=== PATIENT | female | born 1985 | race Caucasian/White ===

== ENCOUNTER 2017-06-15 11:09 | Emergency (ER) | payer BC, OTHER ==
[~2017-06-15] VITALS: Ht 157.5 cm; Wt 87.3 kg
[~2017-06-15 11:09] MED LIST: FRRS300 PO; PRENTAB26 PO
[2017-06-15 11:14] VITALS: TEMP 36.9; Ht 157.5 cm; Wt 87.3 kg
[2017-06-15] MEDS ORDERED: CHOL100010 PO (11:34)
[2017-06-15] MEDS ORDERED: AMOX500T PO (11:34)
[2017-06-15] MEDS ORDERED: SERT25TA PO (11:34)
[2017-06-15] MEDS ORDERED: LISI-729 PO (11:34)
[2017-06-15] MEDS ORDERED: ACETAMINOPHEN 500 MG TAB PO STA (12:21)
[2017-06-15] MEDS ORDERED: KETOROLAC TROMETHAMINE 60 MG/2 ML VIAL IM STA (12:21)
[2017-06-15] MEDS ORDERED: COUGH DROP (SUGAR FREE) LOZ 24 LOZ/1 BOX PO STA (12:21)
[2017-06-15] MEDS ORDERED: DEXAMETHASONE **PF** INJ 10 MG/ML VIAL PO STA (12:21)
--- NOTE | 2017-06-15 12:27 | EMERGENCY ROOM VISIT NOTE ---
History Report prepared by Bianca: Dasia Kwan Under the Supervision of: Dr. Michael Ray M.D. First contact with patient: 11:42 Chief Complaint: SORETHROAT Stated Complaint: SORE THROAT, EAR ACHE, COUGHING, CONGESTED History of Present Illness The patient is a 31 year old white female with a past medical history of HTN, bronchitis, and anxiety who presents to the ED with persistent sore throat for three days DAMASCENER. Positive sore throat, congestion, productive cough with yellow mucus, nausea, vomiting, rhinorrhea, chills, and diaphoresis. Negative abdominal pain. She currently rates her discomfort a 6/10 in severity. She regularly takes Zoloft, Lisinopril, and Vitamin D. She denies any history of smoking. She notes that she had bronchitis three months ago. She notes that she went to see her PCP, was prescribed Augmentin for a left ear infection. She notes that she was tested for strep with a negative result. She notes that she has taken OTC medication, though no relief. She notes that she has not received the flu shot this year. Source of History: patient Onset: three days DAMASCENER Position: throat Symptom Intensity: 6/10 Quality: other (sore) Timing: other (persistent ) Associated Symptoms: + chills, + diaphoresis, + sorethroat, + cough ( productive cough with yellow mucu), + nausea, + vomiting, No abdominal pain Note: She notes congestion and rhinorrhea. Review of Systems See HPI for pertinent positives and negatives. A total of ten systems were reviewed and were otherwise negative. Past Medical & Surgical Medical Problems: (1) Bronchitis Surgical Problems: (1) H/O section (2) H/O hernia repair Family History Cancer Heart disease Hypertension Kidney disease Kidney stones Social History Smoking Status: Never Smoker Smokeless Tobacco Use: No Alcohol Use: none Drug Use: none Marital Status: single Housing Status: lives with family Occupation Status: employed Current/Historical Medications Scheduled Amoxicillin & Pot Clavulanate (Augmentin 500MG), Unknown Dose PO BID Azithromycin (Zithromax), 250 MG PO DAILY Cholecalciferol (Vitamin D), 1,000 UNITS PO DAILY Lisinopril (Zestril), Unknown Dose PO DAILY Prednisone (Prednisone), 50 MG PO DAILY Sertraline (Zoloft), Unknown Dose PO DAILY Allergies Coded Allergies: Cefaclor (Verified Allergy, Unknown, HIVES, 06/15/17) Cephalosporins (Verified Allergy, Unknown, HIVES, 06/15/17) Physical Exam Vital Signs Date Time Temp Pulse Resp B/P (MAP) Pulse Ox O2 Delivery O2 Flow Rate FiO2 06/15/17 14:05 81 20 131/94 99 06/15/17 12:42 65 18 151/111 100 Room Air 06/15/17 11:14 36.9 85 20 196/110 98 Room Air Physical Exam GENERAL: Awake, alert, well-appearing, NAD HENT: Normocephalic, atraumatic. R TM clear, L TM mild erythema, no bulging, no retraction, no fluid behind the ear EYES: Normal conjunctiva. Sclera non-icteric. NECK: Supple. No nuchal rigidity. FROM. Patient is able to flex and extend the neck without issue, no tonsillar or uvular deviation, posterior pharynx clear, non-stridulous, no dental swelling, no sublingual or submental swelling RESPIRATORY: CTAB, no rhonchi, wheezing, crackles CARDIAC: RRR, no MRG ABDOMEN: Soft, NTND, BS+ MSK: No chest wall TTP, no LE edema NEURO: GCS 15, CN 2-12 intact, moves all 4s on command SKIN: No rash or jaundice noted. Medical Decision & Procedures Medications Administered Medications (Trade) Dose Ordered Sig/Tarik Route Start Time Stop Time Status Last Admin Dose Admin Ketorolac Tromethamine (Toradol Inj) 60 mg NOW STAT IM 06/15/17 12:21 06/15/17 12:24 DC 06/15/17 12:39 60 MG Menthol (Nice Ben) 1 ben NOW STAT PO 06/15/17 12:21 06/15/17 12:24 DC 06/15/17 12:38 1 BEN Acetaminophen (Tylenol Tab) 1,000 mg NOW STAT PO 06/15/17 12:21 06/15/17 12:24 DC 06/15/17 12:38 1,000 MG Dexamethasone Sodium Phosphate (Dexamethasone Inj Pf) 10 mg ONE STAT PO 06/15/17 12:21 06/15/17 12:24 DC 06/15/17 12:38 10 MG Famotidine (Pepcid Tab) 20 mg NOW ONCE PO 06/15/17 12:30 1/2/18 12:31 DC 06/15/17 12:37 20 MG ED Course 1203: The patient was evaluated in room A2. A complete history and physical exam was performed. 1330: I reassessed the patient at this time. She is feeling better and resting comfortably. I discussed the results and treatment plan with the patient. I answered all pertaining questions that she had. She expressed understanding and verbalized agreement. The patient will be discharged home. Medical Decision The patient is a 31 year old white female with a past medical history of HTN, bronchitis, and anxiety who presents to the ED with persistent sore throat for three days DAMASCENER. Prior records/ancillary studies reviewed. Triage Nursing notes reviewed. The patient's history was concerning for a sore throat. Differential diagnosis: Etiologies such as viral syndrome, tonsillitis, streptococcal pharyngitis, mononucleosis, peritonsillar abscess, retropharyngeal abscess, otitis, pneumonia , influenza, as well as others were entertained. Patient was seen and evaluated the bedside. Patient has had some sore throat which has been chronic in nature. Patient did recently completed Augmentin for 10 days for an ear infection. Of note the patient does have some mild redness but no fullness and no fluid. Patient did complain of some mild productive cough. Given that the Augmentin would cover for likely gram-positive bugs she was given azithromycin as well as symptom control. Given the patient's general appearance which is fairly healthy and nontoxic I did not obtain any blood work or imaging at this time. I do not believe she has any deep space or other neck infection that would require advanced imaging at this time. Given the patient a recent course of Augmentin with some mild erythema to the TM I do not believe that she had a failed outpatient treatment this will just take some more time to resolve. I also discussed this with the pharmacist who agreed. Patient was given medications which gave her some mild relief. Patient did receive her first dose of antibiotics. Patient was deemed suitable for outpatient follow- up and treatment. Outpatient discharge Medication Reconcilliation Current Medication List: was personally reviewed by me Impression Primary Impression: Sore throat Additional Impression: Bronchitis Scribe Attestation The scribe's documentation has been prepared under my direction and personally reviewed by me in its entirety. I confirm that the note above accurately reflects all work, treatment, procedures, and medical decision making performed by me. Departure Information Dispostion Home / Self-Care Prescriptions Prednisone (PREDNISONE) 50 Mg Tab 50 MG PO DAILY for 4 Days, #4 TAB Prov: Michael Ray M.D. 06/15/17 Azithromycin (Zithromax) 250 Mg Tab 250 MG PO DAILY for 4 Days, #4 TAB Prov: Michael Ray M.D. 06/15/17 Referrals Karel Silverio M.D. (PCP) Forms HOME CARE DOCUMENTATION FORM, IMPORTANT VISIT INFORMATION Patient Instructions ED Upper Resp Infec Abx Tx, My [facility], Sore Throat - [facility], Sore Throats Self Care Additional Instructions Please return to the emergency department if you have worsening or recurrent symptoms not amenable to at-home treatment. Please call for a follow-up appointment with her primary care physician. Please take your medications as prescribed. If you have other concerns and/or complaints please feel free to also call your primary care physician's office or return the ED for further evaluation, management, and treatment. You were found to have an elevated blood pressure today (>120 sytolic or >90 diastolic). Per medicare guidelines, you need to follow up with this blood pressure screening with your Primary Care Physician (PCP). For a new PCP call [phone]. You may take 600 mg Ibuprofen every 6 hours as needed for pain with food for no more than 2 consecutive days. You may take tylenol 1000 mg every 6 hours as needed for pain. You may take motrin and tylenol separately or at the same time. Take your medications as prescribed. Please consider taking her steroids in the morning with food. You have been examined and treated today on an emergency basis only. This is not a substitute for, or an effort to provide, complete comprehensive medical care. It is impossible to recognize and treat all injuries or illnesses in a single emergency department visit. It is therefore important that you follow up closely with [facility], your PCP, and/or your specialist(s). Call as soon as possible for an appointment. Thank you for your time and consideration. I look forward to speaking with you again soon. Please don't hesitate to call us if you have any questions. Problem Qualifiers
[2017-06-15] MEDS ORDERED: FAMOTIDINE 20 MG TAB PO ONE (12:30)
[2017-06-15] MEDS ORDERED: PRED50TA PO (13:48)
[2017-06-15] MEDS ORDERED: AZIT250T PO (13:48)
[2017-06-15 14:05] VITALS: BP 131/94; PULSE 81; O2SAT 99
== END 2017-06-15 14:06 | disposition home or self-care (01) ==
LOC: C.EDB 11:12 → C.EDA 14:06
DX: J02.9 Acute pharyngitis, unspecified (principal); J40 Bronchitis, not specified as acute or chronic; Z79.899 Other long term (current) drug therapy; Z88.8 Allergy status to other drugs, medicaments and biological substances; Z80.9 Family history of malignant neoplasm, unspecified; Z82.49 Family history of ischemic heart disease and other diseases of the circulatory system; Z84.1 Family history of disorders of kidney and ureter